=== PATIENT | male | born 1955 | race Caucasian/White ===

== ENCOUNTER → 2017-02-10 | Outpatient (CLI) | payer BC ==
[~2017-02-10] MED LIST: ASPIRIN 81M81 MG/TA2 PO; GLUCOPHAGE500 MG/TAB PO; LIPITOR20 MG PO; MEVACOR10 MG PO; PRINIVIL10 MG PO; VICTOZA6 MG/ML SC
[2017-02-10 12:24] LABS: HIV 1/2 Antibodies Non-Reactive; HIV-1p24 Antigen Non-Reactive
== END ==
LOC: COL.LAB 10:57
PROVIDERS: Orthopaedic Surgery
DX: Z01.812 Encounter for preprocedural laboratory examination (principal); M17.12 Unilateral primary osteoarthritis, left knee

== ENCOUNTER → 2021-11-04 | Outpatient (CLI) | payer MEDICARE, OTHER | LOC: COL.RAD 13:18 | DX: Z12.2 Encounter for screening for malignant neoplasm of respiratory organs (principal); Z87.891 Personal history of nicotine dependence ==

== ENCOUNTER 2024-06-19 07:15 | Inpatient (IN) | payer MEDICARE ==
[~2024-06-19] VITALS: Ht 190.5 cm; Wt 110.3 kg
[~2024-06-19 07:15] MED LIST changes: +LIPITOR 80MG80 MG PO; -LIPITOR20 MG PO; -PRINIVIL10 MG PO; +PRINIVIL20 MG PO
[2024-06-19] MEDS ORDERED: NS 1,000 ML IV ONE (07:30)
[2024-06-19 07:44] LABS: BASO # 0.1 K/mm3 (0.0-0.2); BASO % 0.8 % (0.0-2.0); EOS # 0.5 K/mm3 (0.0-0.7); EOS % 5.2 % (0.0-4.0); GRAN % 65.9 % (42.2-75.2); HEMATOCRIT 46.9 % (42.0-52.0); HEMOGLOBIN 15.5 g/dl (13.5-18.0); LYMPH # 1.8 K/mm3 (1.2-3.4); LYMPH % 19.8 % (20.0-51.0); MEAN CELL VOLUME 95 fl (80.0-100.0); MEAN CORPUSCULAR HEMOGLOBIN 31 pg (27-31); MEAN CORPUSCULAR HGB CONC 33 g/dl (33.0-37.0); MEAN PLATELET VOLUME 10.1 fl (7.4-10.4); MONO # 0.7 K/mm3 (0.1-0.6); PLATELET COUNT 182 K/mm3 (130-400); RED BLOOD COUNT 4.93 M/mm3 (4.20-5.60); REDCELL DISTRIBUTION WIDTH-CV 12.8 % (11.5-14.5)
[2024-06-19] MEDS ORDERED: Albuterol/Ipratropium 3 MG-0.5 MG/3 ML Neb Soln IH ONE (08:00)
[2024-06-19 08:05] LABS: ALBUMIN 3.4 g/dL (3.4-4.8); BILIRUBIN,TOTAL 1.7 mg/dL (0.2-1.2); CALCIUM 9.1 mg/dL (8.4-10.2); CREATININE, serum 0.7 mg/dL (0.72-1.25); POTASSIUM 4.3 mEq/L (3.5-4.5); TOTAL PROTEIN 6.8 g/dl (6.2-8.1)
[2024-06-19 08:14] LABS: TROPONIN-I 0.015 ng/mL (0.00-0.033)
[2024-06-19] MEDS ORDERED: Iohexol 300 - 100 ML VIAL IV ONE (09:31)
[2024-06-19] MEDS ORDERED: NS 100 ML IV SCH (09:34)
[2024-06-19] MEDS ORDERED: FLOMAX 0.40.4 MG/CAP PO (12:10)
[2024-06-19] MEDS ORDERED: NORVASC 5MG5 MG/TAB PO (12:11)
[2024-06-19] MEDS ORDERED: CENTRUM SILVER1 TAB PO (12:13)
[2024-06-19] MEDS ORDERED: BASAGLAR K100 UNIT/1 SQ (12:14)
--- NOTE | 2024-06-19 12:37 | NUR ---
Patient to room 308 by wheelchair from the ED. with the patient. Patient A&Ox4. VSS 2L NC O2. Independent in the room. Denies pain and discomfort. Call light within reach. Nurse oriented the patient to location, room and call light.
[2024-06-19 12:43] LABS: PH 6.5 (5.0-8.5); URINE APPEARANCE CLEAR (CLEAR/HAZY); URINE BLOOD NEGATIVE (NEGATIVE); URINE COLOR YELLOW (YELLOW); URINE GLUCOSE NEGATIVE (NEGATIVE); URINE KETONE NEGATIVE (NEGATIVE); URINE NITRATE NEGATIVE (NEGATIVE); URINE PROTEIN(semi-quant) NEGATIVE (NEGATIVE)
[2024-06-19] MEDS ORDERED: *Potassium Replacement Protocol MC SCH (12:45)
[2024-06-19] MEDS ORDERED: dexAMETHasone 4 MG/ML VIAL IV SCH (12:48)
[2024-06-19] MEDS ORDERED: Lisinopril 20 MG TAB PO SCH (12:50)
[2024-06-19] MEDS ORDERED: metFORMIN 500 MG TAB PO SCH ×2 (12:50→17:00)
[2024-06-19 13:05] VITALS: BP 129/68; PULSE 68; TEMP 97.8
[2024-06-19 13:09] LABS: COLLECTION METHOD CLEAN CATCH
[2024-06-19] MEDS ORDERED: Albuterol/Ipratropium 3 MG-0.5 MG/3 ML Neb Soln IH SCH (14:00)
--- NOTE | 2024-06-19 14:52 | NUR ---
SW met with patient to complete initial assessment for discharge planning. Patient verified that he lives outside [place] with his Martina ([phone]). He sees Dr. Sonu Montaño as his PCP and uses [facility]. Patient states he has a cane and walker but does not use them. Patient is independent and active. Patient is covered by Medicare A&B and [employer] supplemental insurances. Discharge plan: Home
[2024-06-19 15:07] VITALS: BP 153/65; PULSE 76; TEMP 98.3
[2024-06-19 17:00] VITALS: BP_SYST 153
[2024-06-19] MEDS ORDERED: Atorvastatin 80 MG TAB PO SCH (17:00)
[2024-06-19] MEDS ORDERED: amLODIPine 5 MG TAB PO SCH (17:00)
[2024-06-19] MEDS ORDERED: Insulin Glargine-ygfn (Lantus) SQ SCH (17:30)
--- NOTE | 2024-06-19 20:30 | NUR ---
UPON SHIFT ASSESSMENT, FLO WAS AWAKE IN BEDSIDE RECLINER AND AXO X4. LUNG SOUNDS ARE FINE CRACKLES THAT CLEAR WITH COUGH IN UPPER LOBES. PATIENT DENIES CHEST PAIN. BG 399 AND 10 UNITS SLIDING SCALE GIVEN. HOSPITALIST JD NOTIFIED. PATIENT EDUCATION PROVIDED ON STERIODS (DECADRONE) AND SIDE EFFECTS OF HIGH BLOOD GLUCOSE. VS ARE WNL.TELE IN NS. CALL LIGHT WITHIN REACH.
[2024-06-19 21:00] VITALS: BP_SYST 107
[2024-06-19] MEDS ORDERED: Insulin Lispro (HumaLOG) SQ SCH (21:00)
[2024-06-19 21:26] VITALS: BP 107/61; PULSE 93; TEMP 97.8
[2024-06-20] VITALS (10 sets, daily range): BP systolic 125–143; BP diastolic 62–68; PULSE 71–85; TEMP 97.8–98.3
--- NOTE | 2024-06-20 03:30 | NUR ---
PATIENT UP TO BEDSIDE RECLINER. VS ARE WNL. READING ARTICLE ON PHONE. DENIES CHEST PAIN AND SOA.
[2024-06-20] MEDS ORDERED: Dextrose 50% Water 25 GM/50 ML SYRINGE IV PRN (07:15)
[2024-06-20] MEDS ORDERED: Glucagon 1 MG VIAL IM PRN (07:15)
[2024-06-20] MEDS ORDERED: Dextrose (Glucose) 15 GM (4 x 3.75 GM) Chewable TABLET PACK PO PRN (07:15)
--- NOTE | 2024-06-20 08:00 | NUR ---
Patient sitting up in bed. A&Ox4. VSS 2L NC O2. IV CDI. Denies pain and discomfort. Call light within reach
[2024-06-20] MEDS ORDERED: Doxycycline Monohydrate 100 MG CAP PO SCH (09:00)
[2024-06-20] MEDS ORDERED: dexAMETHasone 10 MG/ML VIAL IV SCH (09:00)
[2024-06-20 10:22] LABS: BASO % 0.3 % (0.0-2.0); EOS % 0.3 % (0.0-4.0); GRAN # 6.7 K/mm3 (1.4-6.5); GRAN % 76.8 % (42.2-75.2); HEMATOCRIT 43.6 % (42.0-52.0); HEMOGLOBIN 14.7 g/dl (13.5-18.0); LYMPH # 1.4 K/mm3 (1.2-3.4); LYMPH % 16.2 % (20.0-51.0); MEAN CELL VOLUME 95 fl (80.0-100.0); MEAN CORPUSCULAR HEMOGLOBIN 32 pg (27-31); MEAN CORPUSCULAR HGB CONC 34 g/dl (33.0-37.0); MEAN PLATELET VOLUME 10.2 fl (7.4-10.4); MONO # 0.5 K/mm3 (0.1-0.6); MONO % 6.1 % (1.7-9.3); PLATELET COUNT 156 K/mm3 (130-400); RED BLOOD COUNT 4.58 M/mm3 (4.20-5.60); REDCELL DISTRIBUTION WIDTH-CV 12.8 % (11.5-14.5)
--- NOTE | 2024-06-20 10:39 | NUR ---
Initial visit; Patient thanked Marine Fitter for looking in on him and offering God's blessings. Patient not interested in Spiritual Care at this time.
[2024-06-20 10:54] LABS: ALBUMIN 3.2 g/dL (3.4-4.8); CALCIUM 8.8 mg/dL (8.4-10.2); CREATININE, serum 0.76 mg/dL (0.72-1.25); MAGNESIUM 1.2 mg/dL (1.6-2.6); PHOSPHOROUS 2.4 mg/dL (2.3-4.7); POTASSIUM 3.6 mEq/L (3.5-4.5)
--- NOTE | 2024-06-20 13:13 | NUR ---
Senior Network Architect attended clinical rounds with the team and Hospitalist advised patient will possibly be ready for discharge tomorrow and may need home oxygen.
[2024-06-20] MEDS ORDERED: Budesonide Neb Susp 0.5 MG/2 ML AMP IH SCH (19:00)
[2024-06-20] MEDS ORDERED: Formoterol Neb Soln 20 MCG/2 ML UD IH SCH (19:00)
[2024-06-20] MEDS ORDERED: Potassium Bicarbonate/Citrate 20 MEQ Effervescent TAB PO SCH (19:30)
[2024-06-20] MEDS ORDERED: Magnesium Sulfate 8% 50 ML IV ONE (20:30)
--- NOTE | 2024-06-20 20:50 | NUR ---
CALL PLACED TO HOSPITALISTJD. PATIENT MAG-1.2. TORB TO REPLACE MAG IV 4G GIVEN.
--- NOTE | 2024-06-20 21:00 | NUR ---
UPON SHIFT ASSESSMENT, PATIENT WAS IN BEDSIDE RECLINER AND AXO X4. 02 NC AT 1.5L REMAINS AND LT UPPER LOBE AUSCULTATED EXP WHEEZING AND BOTH UPPER LOBES FINE CRACKLES. PATIENT DENIES CHEST PAIN OR SOA AT THIS TIME. BLLE SHOW DISCOLORATION R/T STASIS. PATIENT ANXIOUS FOR DISCHARGE. CALL LIGHT WITHIN REACH.
[2024-06-21] VITALS (7 sets, daily range): BP systolic 126–136; BP diastolic 56–80; PULSE 82–85; TEMP 97.9–98.4
[2024-06-21 07:37] LABS: BASO % 0.3 % (0.0-2.0); EOS # 0.2 K/mm3 (0.0-0.7); EOS % 1.9 % (0.0-4.0); GRAN # 6.8 K/mm3 (1.4-6.5); GRAN % 68.9 % (42.2-75.2); HEMATOCRIT 43.4 % (42.0-52.0); HEMOGLOBIN 14.3 g/dl (13.5-18.0); LYMPH # 2.1 K/mm3 (1.2-3.4); LYMPH % 21.4 % (20.0-51.0); MEAN CELL VOLUME 97 fl (80.0-100.0); MEAN CORPUSCULAR HEMOGLOBIN 32 pg (27-31); MEAN CORPUSCULAR HGB CONC 33 g/dl (33.0-37.0); MEAN PLATELET VOLUME 10.2 fl (7.4-10.4); MONO # 0.7 K/mm3 (0.1-0.6); PLATELET COUNT 167 K/mm3 (130-400); RED BLOOD COUNT 4.49 M/mm3 (4.20-5.60); REDCELL DISTRIBUTION WIDTH-CV 13.2 % (11.5-14.5)
[2024-06-21 07:52] LABS: ALBUMIN 3.2 g/dL (3.4-4.8); CREATININE, serum 0.76 mg/dL (0.72-1.25); MAGNESIUM 1.7 mg/dL (1.6-2.6); PHOSPHOROUS 2.8 mg/dL (2.3-4.7); POTASSIUM 4.5 mEq/L (3.5-4.5)
--- NOTE | 2024-06-21 08:14 | NUR ---
SPO2 ON 1 LPM NC 87%. INCREASED TO 2 LPM NC 94%. RN BESIDE
--- NOTE | 2024-06-21 08:20 | NUR ---
Patient awake, alert and oriented. Denies pain or nausea. Shortness of breath on exertion but states he feels improvement. On 2LNC. at the bedside. Tolerating food well. Bed in lowest position with call light within reach. Awaiting echo today.
[2024-06-21] MEDS ORDERED: RT ADVAIR 228 DISKUS IH (08:51)
[2024-06-21] MEDS ORDERED: DOXYCYCLINE 10100 MG PO (08:51)
[2024-06-21] MEDS ORDERED: PROAIR HFA0.09 MG/AC IH (08:51)
[2024-06-21] MEDS ORDERED: MEDROL 4MG DOSPA4 MG PO (08:52)
[2024-06-21] MEDS ORDERED: OXYGEN NASAL.CANN (08:53)
--- NOTE | 2024-06-21 13:39 | NUR ---
Patient discharged to home, picked up by . Educated on discharge instructions, new medications, and home oxygen use. Patient verbalized understanding. Sent home with all belongings and portable oxygen. Assisted out to car by nursing staff. IV and telemetry removed prior to discharge.
--- NOTE | 2024-06-21 14:39 | NUR ---
Superintendent [employer] met with patient who is set to discharge today. Patient will need home oxygen and would like to have it ordered through [facility]. SW contacted [facility] and sent referral with prescription for oxygen via secure email. Portable tank was delivered to patient's room prior to discharge.
== END 2024-06-21 13:44 | disposition home or self-care (01) | DRG 192 ==
LOC: COL.ER 07:15 → MEDICAL 10:13
PROVIDERS: Family Medicine; ADMIT Internal Medicine
DX: J44.1 Chronic obstructive pulmonary disease with (acute) exacerbation (principal); I10 Essential (primary) hypertension; E11.9 Type 2 diabetes mellitus without complications; Z20.822 Contact with and (suspected) exposure to COVID-19; E78.5 Hyperlipidemia, unspecified; N40.0 Benign prostatic hyperplasia without lower urinary tract symptoms; J98.4 Other disorders of lung; F17.210 Nicotine dependence, cigarettes, uncomplicated; R59.1 Generalized enlarged lymph nodes; I87.2 Venous insufficiency (chronic) (peripheral); Z96.653 Presence of artificial knee joint, bilateral; Z79.84 Long term (current) use of oral hypoglycemic drugs; Z79.899 Other long term (current) drug therapy; Z79.4 Long term (current) use of insulin
CPT/HCPCS: J1100; J1815; J3475; J7030; Q9967